=== PATIENT | male | born 1945 | race Caucasian/White ===

== ENCOUNTER 2024-03-15 | Emergency (ER) | payer BC, MEDICARE, OTHER ==
[~2024-03-15] VITALS: Ht 182.9 cm; Wt 120.0 kg
[~2024-03-15] MED LIST: ACID16CA PO; ASPI-1009 PO; CALC-793 PO; DHEA25 PO; DUTA0.5C40 PO; HYT1T PO; METO100T7 PO; MULT-1085 PO; OMEG1CAP21 PO; OMEP-84 PO; TESTOSTERONE IM; THIO100C3 PO; TRIA1TAB5 PO
[2024-03-15 00:01] VITALS: BP 154/61; PULSE 68; RESP 16; TEMP 98.7; O2SAT 97
[2024-03-15] MEDS ORDERED: DOXY-1 PO (04:29)
[2024-03-15] MEDS: LIDOcaine 1% W/epiNEPHrine 1:100,000 20ml vial IJ ONE (04:36)
[2024-03-15] MEDS: DOXYCYCLINE 100MG CAPSULE PO STA (04:38)
[2024-03-15] MEDS: TETanus/Pertussis (Acell)/Diphther VAC/PF (Tdap-Adult) 0.5ml syringe IMVAC ONE (04:39)
== END 2024-03-15 05:20 | disposition home or self-care (01) ==
LOC: ER 00:03
DX: S81.811A Laceration without foreign body, right lower leg, initial encounter (principal); I10 Essential (primary) hypertension; I48.91 Unspecified atrial fibrillation; Z88.1 Allergy status to other antibiotic agents; Z88.6 Allergy status to analgesic agent; Z79.01 Long term (current) use of anticoagulants; Z79.899 Other long term (current) drug therapy; W01.0XXA Fall on same level from slipping, tripping and stumbling without subsequent striking against object, initial encounter; Y93.89 Activity, other specified; Y92.89 Other specified places as the place of occurrence of the external cause; Y99.8 Other external cause status
CPT/HCPCS: 12002; 90471; 90715; 93005; 99283; A6449

== ENCOUNTER 2024-03-27 17:02 | Emergency (ER) | payer BC ==
[~2024-03-27] VITALS: Ht 180.3 cm; Wt 97.8 kg
[2024-03-27 17:11] VITALS: BP 123/76; PULSE 71; RESP 15; O2SAT 97
[2024-03-27 18:28] VITALS: TEMP 96.8
== END 2024-03-27 18:30 | disposition home or self-care (01) ==
LOC: ER 17:03
DX: S81.811D Laceration without foreign body, right lower leg, subsequent encounter (principal); I10 Essential (primary) hypertension; I48.91 Unspecified atrial fibrillation; Z88.1 Allergy status to other antibiotic agents; Z88.6 Allergy status to analgesic agent; X58.XXXD Exposure to other specified factors, subsequent encounter
CPT/HCPCS: 99281